=== PATIENT | male | born 1945 | race Caucasian/White ===

== ENCOUNTER 2018-12-06 14:05 | Observation (INO) | payer OTHER, MEDICAID ==
[~2018-12-06] VITALS: Ht 167.6 cm; Wt 86.6 kg
[~2018-12-06 14:05] MED LIST: CARVEDILOL6.25 M1 PO; EFFIENT10 M1 PO; GLIPIZIDE XL2.5 M1 PO; LISINOPRIL10 MG PO; NITROSTAT0.4 MG SL; SIMVASTATIN20 M1 PO; TAMSULOSIN HYD0.4 M1 PO
[2018-12-06 14:26] VITALS: Ht 167.6 cm; Wt 86.6 kg
[2018-12-06 17:20] LABS: BASOPHIL % 0.6 % (0-2); PLATELET COUNT 195 x10^3mcL (130-400); RED CELL DISTRIBUTION WIDTH 13.3 % (11.5-14.5)
[2018-12-06 17:32] LABS: UA SPECIFIC GRAVITY 1.025 (1.005-1.035); microscopic required? YES; urine erythrocyte NEGATIVE (NEGATIVE)
[2018-12-06 17:41] LABS: CALCIUM 8.3 mg/dL (8.5-10.1); CHLORIDE SERUM 105 mmol/L (98-107); CREATININE SERUM 1.7 mg/dL (0.7-1.3); GLUCOSE SERUM 141 mg/dL (74-106); POTASSIUM SERUM 4.3 mmol/L (3.5-5.1); SODIUM SERUM 138 mmol/L (136-145)
[2018-12-06 17:45] LABS: ALKALINE PHOSPHATASE 80 U/L (46-116); ALT/SGPT 26 U/L (16-63); AST/SGOT 29 U/L (15-37); BILIRUBIN TOTAL 0.3 mg/dL (0.20-1.00); LIPASE 429 IU/L (73-393); TOTAL PROTEIN, SERUM 7.7 g/dL (6.4-8.2)
[2018-12-06 17:46] LABS: ALBUMIN 3.2 g/dL (3.4-5.0)
[2018-12-06] MEDS ORDERED: OMEPRAZOLE40 M1 PO (18:54)
[2018-12-06] MEDS ORDERED: FLOVENT DI100 MCG/A1 INH (18:54)
[2018-12-06] MEDS ORDERED: FINASTERIDE5 M1 PO (18:54)
[2018-12-06] MEDS ORDERED: TAMSULOSIN HYD0.4 M1 PO (18:55)
[2018-12-06 21:32] VITALS: BP 136/75
[2018-12-07 06:18] VITALS: BP 139/62
[2018-12-07 06:54] LABS: BASOPHIL % 0.4 % (0-2); PLATELET COUNT 177 x10^3mcL (130-400); RED CELL DISTRIBUTION WIDTH 13.1 % (11.5-14.5)
[2018-12-07 06:56] LABS: CALCIUM 7.9 mg/dL (8.5-10.1); CARBON DIOXIDE 25.9 mmol/L (21-32); CHLORIDE SERUM 108 mmol/L (98-107); CREATININE SERUM 2.3 mg/dL (0.7-1.3); GLUCOSE SERUM 207 mg/dL (74-106); POTASSIUM SERUM 4.9 mmol/L (3.5-5.1); SODIUM SERUM 142 mmol/L (136-145)
[2018-12-07 08:32] VITALS: BP 116/58
[2018-12-07 09:04] LABS: BILIRUBIN DIRECT 0.12 mg/dL (0.0-0.2); BILIRUBIN TOTAL 0.4 mg/dL (0.20-1.00); TOTAL PROTEIN, SERUM 6.9 g/dL (6.4-8.2)
[2018-12-07 09:05] LABS: ALBUMIN 2.7 g/dL (3.4-5.0)
[2018-12-07 12:41] VITALS: BP 118/53
[2018-12-07 14:27] LABS: CALCIUM 7.7 mg/dL (8.5-10.1); CHLORIDE SERUM 108 mmol/L (98-107); CREATININE SERUM 2.2 mg/dL (0.7-1.3); GLUCOSE SERUM 200 mg/dL (74-106); POTASSIUM SERUM 4.3 mmol/L (3.5-5.1); SODIUM SERUM 139 mmol/L (136-145)
[2018-12-07 15:49] VITALS: BP 118/53
[2018-12-07 16:16] VITALS: BP 145/61
== END 2018-12-07 16:24 | disposition home or self-care (01) | DRG 439 ==
LOC: ED 14:05 → MU 19:52
PROVIDERS: Emergency Medicine; Surgery; ADMIT Internal Medicine Pulmonary Disease
DX: K85.10 Biliary acute pancreatitis without necrosis or infection (principal); N17.9 Acute kidney failure, unspecified; N39.0 Urinary tract infection, site not specified; I13.10 Hypertensive heart and chronic kidney disease without heart failure, with stage 1 through stage 4 chronic kidney disease, or unspecified chronic kidney disease; N18.9 Chronic kidney disease, unspecified; E11.22 Type 2 diabetes mellitus with diabetic chronic kidney disease; I25.10 Atherosclerotic heart disease of native coronary artery without angina pectoris; N40.0 Benign prostatic hyperplasia without lower urinary tract symptoms; E78.5 Hyperlipidemia, unspecified; Z95.1 Presence of aortocoronary bypass graft
CPT/HCPCS: G0378; J1885; J1956; J2405; J2543; J7030; J7040; J7050; Q0092

== ENCOUNTER 2019-06-05 15:32 | Emergency (ER) | payer OTHER, MEDICAID ==
[~2019-06-05] VITALS: Ht 167.6 cm; Wt 89.8 kg
[~2019-06-05 15:32] MED LIST changes: +FINASTERIDE5 M1 PO; +FLOVENT DI100 MCG/A1 INH; +OMEPRAZOLE40 M1 PO
[2019-06-05 15:54] VITALS: Ht 167.6 cm; Wt 89.8 kg
[2019-06-05 18:14] LABS: CALCIUM 8.6 mg/dL (8.5-10.1); CARBON DIOXIDE 24.1 mmol/L (21-32); CHLORIDE SERUM 110 mmol/L (98-107); CREATININE SERUM 1.9 mg/dL (0.7-1.3); GLUCOSE SERUM 116 mg/dL (74-106); POTASSIUM SERUM 4.6 mmol/L (3.5-5.1); SODIUM SERUM 143 mmol/L (136-145)
[2019-06-05 18:19] LABS: ALBUMIN 3.7 g/dL (3.4-5.0); ALKALINE PHOSPHATASE 74 U/L (46-116); ALT/SGPT 22 U/L (16-63); AST/SGOT 18 U/L (15-37); BILIRUBIN TOTAL 0.2 mg/dL (0.20-1.00)
[2019-06-05 18:29] LABS: PLATELET COUNT 160 x10^3mcL (130-400); RED CELL DISTRIBUTION WIDTH 12.4 % (11.5-14.5)
[2019-06-05 21:29] VITALS: BP 162/82
== END 2019-06-05 21:29 | disposition home or self-care (01) ==
LOC: ED 15:32
DX: S39.012A Strain of muscle, fascia and tendon of lower back, initial encounter (principal); R10.9 Unspecified abdominal pain; I10 Essential (primary) hypertension; E11.9 Type 2 diabetes mellitus without complications; E78.00 Pure hypercholesterolemia, unspecified; X58.XXXA Exposure to other specified factors, initial encounter; Y93.89 Activity, other specified; Y92.89 Other specified places as the place of occurrence of the external cause; Y99.8 Other external cause status
CPT/HCPCS: J1885; J7030; Q0092

== ENCOUNTER 2020-10-21 13:18 | Observation (INO) | payer OTHER, MEDICAID, SELFPAY ==
[~2020-10-21] VITALS: Ht 165.1 cm; Wt 83.9 kg
[~2020-10-21 13:18] MED LIST changes: +AMLODIPINE BESY10 M2 PO; +ASPIRIN ADULT L81 M5 PO; +AUGMENTIN 875-1 EACH PO; +ESCITALOPRAM OXA5 MG; +FLOMAX0.4 MG PO; +GLIPIZIDE XL5 M2; +HUMALOG100 U/ML SC; +HYDRALAZINE HCL50 MG PO; +LANTI SC; +LIPITOR20 MG; +MELOXICAM7.5 M1; +METOPROLOL TART25 M1 PO; +NEXIUM40 MG PO; +PENTOXIFYL XR400 M1 PO; +TYL325 PO; +ZESTRIL40 MG PO
[2020-10-21 13:20] VITALS: Ht 165.1 cm; Wt 83.9 kg
[2020-10-21 14:43] LABS: BASOPHIL % 0.4 % (0.2-1.5); RED CELL DISTRIBUTION WIDTH 12.8 % (12.1-16.2)
[2020-10-21 14:44] LABS: PLATELET COUNT 452 x10^3mcL (152-348)
[2020-10-21 15:41] LABS: CARBON DIOXIDE 21.4 mmol/L (21-32); CHLORIDE SERUM 99 mmol/L (98-107); CREATININE SERUM 1.8 mg/dL (0.7-1.3); GLUCOSE SERUM 195 mg/dL (74-106); POTASSIUM SERUM 4.8 mmol/L (3.5-5.1); SODIUM SERUM 133 mmol/L (136-145)
[2020-10-21 15:46] LABS: ALBUMIN 2.3 g/dL (3.4-5.0); ALKALINE PHOSPHATASE 132 U/L (46-116); ALT/SGPT 49 U/L (16-63); AST/SGOT 56 U/L (15-37); BILIRUBIN TOTAL 0.2 mg/dL (0.20-1.00); CHOLESTEROL 94 mg/dL (<200); HDL CHOLESTEROL 31 mg/dL (40-60); TOTAL PROTEIN, SERUM 7.6 g/dL (6.4-8.2)
[2020-10-21 16:06] LABS: UA SPECIFIC GRAVITY 1.025 (1.005-1.035); microscopic required? YES; urine erythrocyte TRACE (NEGATIVE)
[2020-10-21 22:23] VITALS: BP 138/60
[2020-10-22 09:13] VITALS: BP 160/78
[2020-10-22 09:29] LABS: BASOPHIL % 0.3 % (0.2-1.5); PLATELET COUNT 394 x10^3mcL (152-348)
[2020-10-22 09:49] LABS: ALKALINE PHOSPHATASE 123 U/L (46-116); ALT/SGPT 45 U/L (16-63); AST/SGOT 47 U/L (15-37); BILIRUBIN TOTAL 0.2 mg/dL (0.20-1.00); CALCIUM 8.5 mg/dL (8.5-10.1); CARBON DIOXIDE 24.2 mmol/L (21-32); CHLORIDE SERUM 101 mmol/L (98-107); CREATININE SERUM 1.8 mg/dL (0.7-1.3); GLUCOSE SERUM 96 mg/dL (74-106); POTASSIUM SERUM 4.8 mmol/L (3.5-5.1); SODIUM SERUM 136 mmol/L (136-145); TOTAL PROTEIN, SERUM 7.5 g/dL (6.4-8.2)
[2020-10-22 09:57] LABS: ALBUMIN 2.2 g/dL (3.4-5.0)
[2020-10-22 12:09] VITALS: BP 147/65
[2020-10-22 20:47] VITALS: BP 157/72
[2020-10-23 05:32] VITALS: BP 127/53
[2020-10-23 08:07] LABS: ALKALINE PHOSPHATASE 122 U/L (46-116); ALT/SGPT 52 U/L (16-63); AST/SGOT 53 U/L (15-37); BILIRUBIN TOTAL 0.35 mg/dL (0.20-1.00); CARBON DIOXIDE 24.7 mmol/L (21-32); CHLORIDE SERUM 100 mmol/L (98-107); CREATININE SERUM 1.7 mg/dL (0.7-1.3); GLUCOSE SERUM 166 mg/dL (74-106); POTASSIUM SERUM 4.9 mmol/L (3.5-5.1); SODIUM SERUM 136 mmol/L (136-145)
[2020-10-23 08:22] LABS: ALBUMIN 2.2 g/dL (3.4-5.0); TOTAL PROTEIN, SERUM 8.3 g/dL (6.4-8.2)
[2020-10-23 08:26] LABS: BASOPHIL % 0.3 % (0.2-1.5); RED CELL DISTRIBUTION WIDTH 12.8 % (12.1-16.2)
[2020-10-23 08:42] VITALS: BP 133/63
[2020-10-23 08:56] LABS: PLATELET COUNT 441 x10^3mcL (152-348)
[2020-10-23] MEDS ORDERED: AUGMENTIN 875-1 EACH PO (11:53)
[2020-10-23 12:51] VITALS: BP 133/63
== END 2020-10-23 13:12 | disposition home or self-care (01) ==
LOC: ED 13:18 → MU 15:46
PROVIDERS: Emergency Medicine; ADMIT Internal Medicine; ATTEND Internal Medicine
DX: U07.1 COVID-19 (principal); I10 Essential (primary) hypertension; E11.9 Type 2 diabetes mellitus without complications; I25.10 Atherosclerotic heart disease of native coronary artery without angina pectoris; K91.5 Postcholecystectomy syndrome; E78.5 Hyperlipidemia, unspecified; E66.9 Obesity, unspecified; Z95.5 Presence of coronary angioplasty implant and graft; Z90.49 Acquired absence of other specified parts of digestive tract
CPT/HCPCS: 78226; 82962; 87804; A9537; G0378; J0696; J1815